=== PATIENT | female | born 1970 | race Hispanic/Latino ===

== ENCOUNTER 2021-06-22 22:15 | Emergency (ER) | payer SELFPAY | END 2021-06-23 00:34 | disposition home or self-care (01) | LOC: CSHERS 22:15 | DX: K80.20 Calculus of gallbladder without cholecystitis without obstruction (principal); N39.0 Urinary tract infection, site not specified; K21.9 Gastro-esophageal reflux disease without esophagitis; G43.909 Migraine, unspecified, not intractable, without status migrainosus; J45.909 Unspecified asthma, uncomplicated | CPT/HCPCS: 76705 ==

== ENCOUNTER 2024-06-02 15:50 | Emergency (ER) | payer OTHER | END 2024-06-02 16:15 | disposition home or self-care (01) | LOC: CSHERS 15:50 | DX: M54.41 Lumbago with sciatica, right side (principal) ==